=== PATIENT | male | born 1955 | race Caucasian/White ===

== ENCOUNTER 2023-05-03 19:49 | Observation (INO) ==
[2023-05-03] MEDS ORDERED: SODIUM CHLORIDE 0.9% 1,000 ML IV ONE ×2 (20:28→22:32)
[2023-05-03 20:40] LABS: Hematocrit (blood only) 41.8 % (42.0-52.0); Hemoglobin 15.3 g/dl (14.0-18.0); Mean Corpuscular Hemoglobin 32.6 pg (25.0-34.0); Mean Corpuscular Hgb Conc 36.6 g/dL (32.0-36.0); Mean Corpuscular Volume 89.1 fL (80.0-100.0); Mean Platelet Volume 10.6 fL (9.4-12.4); Platelet Count 168 K/uL (130-400); RDW Coefficient of Variation 12.3 % (11.5-14.5); RDW Standard Deviation 39.7 fL (36.4-46.3); Red Blood Count 4.69 M/uL (4.70-6.10); White Blood Count 14.85 K/ul (4.8-10.8)
[2023-05-03] MEDS ORDERED: PIPERACILLIN/TAZOBACTAM 4.5 GM/120 ML BAG IV ONE (20:53)
--- NOTE | 2023-05-03 20:55 | Emergency Department Note ---
Impression & Plan Pneumonia, Altered mental status, Fever, Hypoxia, Hypomagnesemia ED Provider Note NAME: SABRINA LEVI AGE: 67 SEX: M : 1955 ARRIVES VIA: Walk-In INFORMANT: Patient, the patient's family member ED PROVIDER(S): Adryan Mcguire DO CHIEF COMPLAINT: Altered mental status HPI: The patient is a 67-year-old male who presented to the emergency department for an evaluation of altered mental status. The patient presented with family. Apparently he has been having problems throughout the day with epigastric pain. He was noted to have a fever of 102 degrees. He was given ibuprofen prior to arrival. He is also noticed a cough as well as difficulty breathing. The patient was having episodes of altered mental status. He was very lethargic upon arrival. I was asked to see the patient by nursing staff once the patient got into his room. His family member did present with him. She does provide part of the history. ROS: See above HPI for pertinent positives & negatives. A total of 10 systems reviewed and were otherwise negative. PAST MEDICAL HISTORY: See Below PAST SURGICAL HISTORY: See Below FAMILY HISTORY: See Below SOCIAL HISTORY: See Below HOME MEDICATIONS: See Below ALLERGIES: See Below VITALS: See Below PHYSICAL EXAMINATION: GENERAL: The patient is awake and answers questions. He is slow to answer questions but appears appropriate. EYES: The conjunctivae are clear. The pupils are round and reactive. EARS, NOSE, MOUTH AND THROAT: The nose is without any evidence of any deformity. Mucous membranes are dry. e. NECK: The neck is nontender and supple. RESPIRATORY: Diminished breath sounds are noted throughout. There is no tachypnea or conversational dyspnea. CARDIOVASCULAR: Regular rate and rhythm noted there no murmurs rubs or gallops normal S1 normal S2. GASTROINTESTINAL: The abdomen is soft and mildly distended. There is upper abdominal tenderness to palpation but no specific guarding or rigidity. MUSCULOSKELETAL/EXTREMITIES: There is no evidence of gross deformity full range of motion is noted in the hips and shoulders. SKIN: Skin was warm and dry. There is no significant pedal edema. NEUROLOGIC: Patient is awake to verbal commands. He is oriented to person and place. He does recognize his family member. Strength was symmetric but diminished. MEDICAL DECISION MAKING: The patient is a 67-year-old male who presented to the emergency department for an evaluation of altered mental status. The patient was also noted to have a fever at home. Upon arrival he was noted to have hypoxia. Lung sounds were not necessarily abnormal. Given the patient's fever as well as his fluctuating blood pressure there was concern this may represent sepsis. I discussed patient's laboratory and radiographic studies with him and his significant other. He was treated with multiple fluid boluses as well as empiric antibiotics. CT of the chest was obtained which appears to be consistent with infiltrate in the right upper lung. Given the patient's findings as well as his ongoing low blood pressure I will discuss this case with the on-call [facility]. Triage Nursing notes reviewed. Prior medical records reviewed Vital Signs: reviewed and remarkable for fever, tachycardia, low blood pressure. Differential diagnosis: Infection, hypoglycemia, electrolyte abnormalities, overdose, toxicologic, cardiac sources, intracerebral event, neurologic, trauma, as well as other pathologies. ER treatment provided: See below Diagnostics interpreted by me: ECG: EKG was obtained in the emergency department. My interpretation is normal sinus rhythm at 84 bpm. There is no ectopy. There is no acute ST segment abnormalities noted. This was compared to a tracing from April 27, 2023. No changes were noted. Cardiac Monitoring: An order was placed for continuous cardiac monitoring. The monitor shows a rate of 93 bpm with sinus rhythm. Laboratory studies: As stated above and show below. Imaging studies: See below. Radiographic imaging was reviewed by myself Consultation(s): Dr. Simon who is on-call for the [facility] group was notified about the patient. ED COURSE: Procedures: none Critical Care: I have personally spent greater than 45 minutes of critical care time in the direct management of this patient. This includes bedside care, interpretation of diagnostic studies, and testing, discussion with consultants, patient, and family members, and other required patient management activities. This 45 minutes is in excess of all separately billable procedures. Past Med/Surg History Medical History Coronary artery disease Diabetes Surgical History History of cholecystectomy History of coronary artery bypass graft Social History Smoking Status: Never smoker Preferred Language: Khmer Feels Safe at Home: Yes Home Meds Home Medications Medication Instructions Recorded Confirmed atorvastatin 80 mg tablet 80 mg PO DAILY 05/03/23 05/03/23 dulaglutide 0.75 mg/0.5 mL 0.75 mg subcut WK 05/03/23 05/03/23 subcutaneous pen injector (Trulicity) empagliflozin 25 mg tablet 25 mg PO DAILY 05/03/23 05/03/23 (Jardiance) furosemide 20 mg tablet 20 mg PO DAILY PRN leg swelling 05/03/23 05/03/23 glipizide 10 mg tablet, extended 10 mg PO BID 05/03/23 05/03/23 release 24 hr metformin 1,000 mg tablet 1,000 mg PO BIDM 05/03/23 05/03/23 metoprolol succinate 25 mg 12.5 mg PO DAILY 05/03/23 05/03/23 tablet,extended release 24 hr nitroglycerin 0.4 mg sublingual 0.4 mg sublingual UD PRN Chest Pain 05/03/23 tablet Results & Data (ED) Vital Signs Vital Signs - 24 hr 05/03/23 19:52 05/03/23 20:00 05/03/23 20:00 Temperature 37.2 C Temperature Source Temporal Artery Scan Pulse Rate 98 H 96 H Pulse Rate [Right Finger] Pulse Rate from SpO2 Sensor Pulse Rhythm Regular Respiratory Rate 20 20 Respiratory Effort / Characteristics Short of Breath Respiratory Depth Normal Respiratory Pattern Blood Pressure 100/63 Blood Pressure [Right Arm] Blood Pressure Mean 75 Blood Pressure Mean [Right Arm] Blood Pressure Position Sitting Blood Pressure Position [Right Arm] Pulse Oximetry 90 89 L 96 Oxygen Delivery Method Room Air Room Air Nasal Cannula Oxygen Flow Rate 0 2 Sepsis Recent Fever Within 48 Hours Yes Sepsis New/Unexplained Change in Mental Status N/A Sepsis Action Taken by Nursing No Action Required Oxygen Flow Rate - Titration 2 Pulse Oximetry Post Tiitration 98 05/03/23 20:28 05/03/23 20:28 05/03/23 20:30 Temperature 37.7 C H Temperature Source Oral Pulse Rate 100 H 102 H Pulse Rate [Right Finger] 96 H Pulse Rate from SpO2 Sensor 100 H 104 H Pulse Rhythm Respiratory Rate 20 17 14 Respiratory Effort / Characteristics Non-Labored Spontaneous Respiratory Depth Normal Respiratory Pattern Regular Blood Pressure Blood Pressure [Right Arm] 107/65 Blood Pressure Mean Blood Pressure Mean [Right Arm] 79 Blood Pressure Position Blood Pressure Position [Right Arm] Lying Pulse Oximetry 96 92 91 Oxygen Delivery Method Nasal Cannula Oxygen Flow Rate 2 Sepsis Recent Fever Within 48 Hours Sepsis New/Unexplained Change in Mental Status Sepsis Action Taken by Nursing Oxygen Flow Rate - Titration Pulse Oximetry Post Tiitration 05/03/23 20:40 05/03/23 20:49 05/03/23 20:49 Temperature Temperature Source Pulse Rate 108 H 100 H Pulse Rate [Right Finger] Pulse Rate from SpO2 Sensor 108 H 100 H Pulse Rhythm Respiratory Rate 18 27 H Respiratory Effort / Characteristics Respiratory Depth Respiratory Pattern Blood Pressure 89/63 L Blood Pressure [Right Arm] Blood Pressure Mean 76 Blood Pressure Mean [Right Arm] Blood Pressure Position Blood Pressure Position [Right Arm] Pulse Oximetry 97 96 Oxygen Delivery Method Oxygen Flow Rate Sepsis Recent Fever Within 48 Hours Sepsis New/Unexplained Change in Mental Status Sepsis Action Taken by Nursing Oxygen Flow Rate - Titration Pulse Oximetry Post Tiitration 05/03/23 20:50 05/03/23 21:00 05/03/23 21:00 Temperature Temperature Source Pulse Rate 98 H 97 H Pulse Rate [Right Finger] Pulse Rate from SpO2 Sensor 99 H 96 H Pulse Rhythm Respiratory Rate 25 H 20 Respiratory Effort / Characteristics Respiratory Depth Respiratory Pattern Blood Pressure 110/60 Blood Pressure [Right Arm] Blood Pressure Mean 73 Blood Pressure Mean [Right Arm] Blood Pressure Position Blood Pressure Position [Right Arm] Pulse Oximetry 97 98 Oxygen Delivery Method Oxygen Flow Rate Sepsis Recent Fever Within 48 Hours Sepsis New/Unexplained Change in Mental Status Sepsis Action Taken by Nursing Oxygen Flow Rate - Titration Pulse Oximetry Post Tiitration 05/03/23 21:34 05/03/23 21:34 05/03/23 21:40 Temperature Temperature Source Pulse Rate 95 H Pulse Rate [Right Finger] Pulse Rate from SpO2 Sensor 97 H 95 H Pulse Rhythm Respiratory Rate 13 Respiratory Effort / Characteristics Respiratory Depth Respiratory Pattern Blood Pressure 104/65 Blood Pressure [Right Arm] Blood Pressure Mean 73 Blood Pressure Mean [Right Arm] Blood Pressure Position Blood Pressure Position [Right Arm] Pulse Oximetry 98 100 Oxygen Delivery Method Oxygen Flow Rate Sepsis Recent Fever Within 48 Hours Sepsis New/Unexplained Change in Mental Status Sepsis Action Taken by Nursing Oxygen Flow Rate - Titration Pulse Oximetry Post Tiitration 05/03/23 21:45 05/03/23 21:45 05/03/23 21:50 Temperature Temperature Source Pulse Rate 95 H 97 H Pulse Rate [Right Finger] Pulse Rate from SpO2 Sensor 94 H 97 H Pulse Rhythm Respiratory Rate 17 18 Respiratory Effort / Characteristics Respiratory Depth Respiratory Pattern Blood Pressure 96/60 L Blood Pressure [Right Arm] Blood Pressure Mean 68 Blood Pressure Mean [Right Arm] Blood Pressure Position Blood Pressure Position [Right Arm] Pulse Oximetry 96 98 Oxygen Delivery Method Oxygen Flow Rate Sepsis Recent Fever Within 48 Hours Sepsis New/Unexplained Change in Mental Status Sepsis Action Taken by Nursing Oxygen Flow Rate - Titration Pulse Oximetry Post Tiitration 05/03/23 22:00 05/03/23 22:00 05/03/23 20:27 Temperature Temperature Source Pulse Rate 98 H 101 H Pulse Rate [Right Finger] Pulse Rate from SpO2 Sensor 98 H Pulse Rhythm Respiratory Rate 25 H Respiratory Effort / Characteristics Respiratory Depth Respiratory Pattern Blood Pressure 105/59 L Blood Pressure [Right Arm] Blood Pressure Mean 71 Blood Pressure Mean [Right Arm] Blood Pressure Position Blood Pressure Position [Right Arm] Pulse Oximetry 99 Oxygen Delivery Method Oxygen Flow Rate Sepsis Recent Fever Within 48 Hours Sepsis New/Unexplained Change in Mental Status Sepsis Action Taken by Nursing Oxygen Flow Rate - Titration Pulse Oximetry Post Tiitration 05/03/23 22:10 05/03/23 22:15 05/03/23 22:15 Temperature Temperature Source Pulse Rate 92 H 93 H Pulse Rate [Right Finger] Pulse Rate from SpO2 Sensor 94 H 92 H Pulse Rhythm Respiratory Rate 21 20 Respiratory Effort / Characteristics Respiratory Depth Respiratory Pattern Blood Pressure 97/58 L Blood Pressure [Right Arm] Blood Pressure Mean 77 Blood Pressure Mean [Right Arm] Blood Pressure Position Blood Pressure Position [Right Arm] Pulse Oximetry 98 98 Oxygen Delivery Method Oxygen Flow Rate Sepsis Recent Fever Within 48 Hours Sepsis New/Unexplained Change in Mental Status Sepsis Action Taken by Nursing Oxygen Flow Rate - Titration Pulse Oximetry Post Tiitration 05/03/23 22:20 05/03/23 22:30 05/03/23 22:30 Temperature Temperature Source Pulse Rate 97 H 95 H Pulse Rate [Right Finger] Pulse Rate from SpO2 Sensor 97 H 96 H Pulse Rhythm Respiratory Rate 23 32 H Respiratory Effort / Characteristics Respiratory Depth Respiratory Pattern Blood Pressure 96/64 L Blood Pressure [Right Arm] Blood Pressure Mean 73 Blood Pressure Mean [Right Arm] Blood Pressure Position Blood Pressure Position [Right Arm] Pulse Oximetry 99 99 Oxygen Delivery Method Oxygen Flow Rate Sepsis Recent Fever Within 48 Hours Sepsis New/Unexplained Change in Mental Status Sepsis Action Taken by Nursing Oxygen Flow Rate - Titration Pulse Oximetry Post Tiitration 05/03/23 22:40 05/03/23 22:45 05/03/23 22:45 Temperature Temperature Source Pulse Rate 95 H 110 H Pulse Rate [Right Finger] Pulse Rate from SpO2 Sensor 95 H 113 H Pulse Rhythm Respiratory Rate 23 21 Respiratory Effort / Characteristics Respiratory Depth Respiratory Pattern Blood Pressure 124/77 Blood Pressure [Right Arm] Blood Pressure Mean 87 Blood Pressure Mean [Right Arm] Blood Pressure Position Blood Pressure Position [Right Arm] Pulse Oximetry 98 98 Oxygen Delivery Method Oxygen Flow Rate Sepsis Recent Fever Within 48 Hours Sepsis New/Unexplained Change in Mental Status Sepsis Action Taken by Nursing Oxygen Flow Rate - Titration Pulse Oximetry Post Tiitration 05/03/23 22:50 05/03/23 23:00 05/03/23 23:02 Temperature Temperature Source Pulse Rate 98 H 92 H Pulse Rate [Right Finger] Pulse Rate from SpO2 Sensor 98 H 91 H Pulse Rhythm Respiratory Rate 28 H 29 H Respiratory Effort / Characteristics Respiratory Depth Respiratory Pattern Blood Pressure 87/61 L Blood Pressure [Right Arm] Blood Pressure Mean 69 Blood Pressure Mean [Right Arm] Blood Pressure Position Blood Pressure Position [Right Arm] Pulse Oximetry 81 L 98 Oxygen Delivery Method Oxygen Flow Rate Sepsis Recent Fever Within 48 Hours Sepsis New/Unexplained Change in Mental Status Sepsis Action Taken by Nursing Oxygen Flow Rate - Titration Pulse Oximetry Post Tiitration 05/03/23 23:02 05/03/23 23:10 05/03/23 23:16 Temperature Temperature Source Pulse Rate 94 H 94 H Pulse Rate [Right Finger] Pulse Rate from SpO2 Sensor 94 H 93 H Pulse Rhythm Respiratory Rate 20 18 Respiratory Effort / Characteristics Respiratory Depth Respiratory Pattern Blood Pressure 86/62 L Blood Pressure [Right Arm] Blood Pressure Mean 71 Blood Pressure Mean [Right Arm] Blood Pressure Position Blood Pressure Position [Right Arm] Pulse Oximetry 98 99 Oxygen Delivery Method Oxygen Flow Rate Sepsis Recent Fever Within 48 Hours Sepsis New/Unexplained Change in Mental Status Sepsis Action Taken by Nursing Oxygen Flow Rate - Titration Pulse Oximetry Post Tiitration 05/03/23 23:16 05/03/23 23:20 Temperature Temperature Source Pulse Rate 93 H 93 H Pulse Rate [Right Finger] Pulse Rate from SpO2 Sensor 93 H 93 H Pulse Rhythm Respiratory Rate 17 18 Respiratory Effort / Characteristics Respiratory Depth Respiratory Pattern Blood Pressure Blood Pressure [Right Arm] Blood Pressure Mean Blood Pressure Mean [Right Arm] Blood Pressure Position Blood Pressure Position [Right Arm] Pulse Oximetry 99 98 Oxygen Delivery Method Oxygen Flow Rate Sepsis Recent Fever Within 48 Hours Sepsis New/Unexplained Change in Mental Status Sepsis Action Taken by Nursing Oxygen Flow Rate - Titration Pulse Oximetry Post Tiitration Home Medications Current Medication List: was personally reviewed by me Laboratory Data Attestation: I reviewed the patient's lab results. 05/03/23 20:10 05/03/23 20:10 Lab Results 05/03/23 05/03/23 05/03/23 Range/Units 20:10 20:10 20:10 WBC 14.85 H (4.8-10.8) K/ul RBC 4.69 L (4.70-6.10) M/uL Hgb 15.3 (14.0-18.0) g/dl Hct 41.8 L (42.0-52.0) % MCV 89.1 (80.0-100.0) fL MCH 32.6 (25.0-34.0) pg MCHC 36.6 H (32.0-36.0) g/dL RDW Std Deviation 39.7 (36.4-46.3) fL RDW Coeff of Claudia 12.3 (11.5-14.5) % Plt Count 168 (130-400) K/uL MPV 10.6 (9.4-12.4) fL Immature Gran % (Auto) 0.5 % Neut % (Auto) 90.8 % Lymph % (Auto) 2.9 % Cherry % (Auto) 5.4 % Eos % (Auto) 0.2 % Baso % (Auto) 0.2 % Neut # (Auto) 13.48 H (1.40-6.50) K/uL Lymph # (Auto) 0.43 L (1.20-3.40) K/uL Cherry # (Auto) 0.80 H (0.11-0.59) K/uL Eos # (Auto) 0.03 (0.00-0.50) K/uL Baso # (Auto) 0.03 (0.00-0.20) K/uL Immature Gran # (Auto) 0.08 (0.01-0.20) K/uL ESR (0-20) mm/hr PT 10.7 (9.0-12.0) Seconds INR 1.0 (0.9-1.1) APTT 23.0 (21.0-31.0) Seconds PTT Ratio 0.8 VBG pH (7.36-7.41) VBG pCO2 (38-50) mmHg VBG pO2 mmHg VBG HCO3 mmol/L VBG O2 Saturation % VBG Base Excess mEq/L Sodium 134 L (136-145) mmol/L Potassium 3.2 L (3.5-5.1) mmol/L Chloride 103 (98-107) mmol/L Carbon Dioxide 22 (21-32) mmol/L Anion Gap 9 (3-11) BUN 16 (6-23) mg/dl Creatinine 0.82 (0.6-1.4) mg/dl Est Cr Clr Drug Dosing 93.3 ml/min Est GFR ( Amer) 104.6 ml/min Est GFR (Non-Af Amer) 90.2 ml/min BUN/Creatinine Ratio 19.5 (10-20) Glucose 144 H (70-99(Fasting)) mg/dl POC Glucose (70-99) mg/dl Lactate (0.4-2.0) mmol/L Calcium 9.1 (8.6-10.3) mg/dl Magnesium 1.5 L (1.7-2.4) mg/dl Total Bilirubin 1.2 H (0.2-1.0) mg/dl Direct Bilirubin 0.2 (0-0.2) mg/dl AST 17 (13-39) U/L ALT 20 (7-52) U/L Alkaline Phosphatase 127 H (34-104) U/L Troponin I High Sens 7.2 (0-20) pg/ml C-Reactive Protein 1.16 H (0-0.5) mg/dl Total Protein 7.0 (6.0-8.3) gm/dl Albumin 3.9 (3.4-5.0) gm/dl Procalcitonin (0-0.5) ng/ml Urine Color Urine Appearance (Clear) Urine pH (4.5-7.5) Ur Specific [place] (1.000-1.030) Urine Protein (Negative) Urine Glucose (UA) (Negative) Urine Ketones (Negative) Urine Blood (Negative) Urine Nitrite (Negative) Urine Bilirubin (Negative) Urine Urobilinogen (Negative) Ur Leukocyte Esterase (Negative) Adenovirus (PCR) (NotDetected) B. pertussis DNA (PCR) (NotDetected) B.parapertussis DNA PCR (NotDetected) C. pneumoniae DNA (PCR) (NotDetected) Coronavirus OC43 (PCR) (NotDetected) Coronavirus HKU1 (PCR) (NotDetected) Coronavirus 229E (PCR) (NotDetected) SARS-CoV-2 (PCR) (NotDetected) Coronavirus NL63 (PCR) (NotDetected) Human Metapneumovir PCR (NotDetected) Influenza Type A (PCR) (NotDetected) Influenza Type B (PCR) (NotDetected) M. pneumoniae (PCR) (NotDetected) Parainfluenza 1 (PCR) (NotDetected) Parainfluenza 2 (PCR) (NotDetected) Parainfluenza 3 (PCR) (NotDetected) Parainfluenza 4 (PCR) (NotDetected) RSV (PCR) (NotDetected) Entero/Rhino (PCR) (NotDetected) 05/03/23 05/03/23 05/03/23 Range/Units 20:10 20:10 20:21 WBC (4.8-10.8) K/ul RBC (4.70-6.10) M/uL Hgb (14.0-18.0) g/dl Hct (42.0-52.0) % MCV (80.0-100.0) fL MCH (25.0-34.0) pg MCHC (32.0-36.0) g/dL RDW Std Deviation (36.4-46.3) fL RDW Coeff of Claudia (11.5-14.5) % Plt Count (130-400) K/uL MPV (9.4-12.4) fL Immature Gran % (Auto) % Neut % (Auto) % Lymph % (Auto) % Cherry % (Auto) % Eos % (Auto) % Baso % (Auto) % Neut # (Auto) (1.40-6.50) K/uL Lymph # (Auto) (1.20-3.40) K/uL Cherry # (Auto) (0.11-0.59) K/uL Eos # (Auto) (0.00-0.50) K/uL Baso # (Auto) (0.00-0.20) K/uL Immature Gran # (Auto) (0.01-0.20) K/uL ESR 19 (0-20) mm/hr PT (9.0-12.0) Seconds INR (0.9-1.1) APTT (21.0-31.0) Seconds PTT Ratio VBG pH (7.36-7.41) VBG pCO2 (38-50) mmHg VBG pO2 mmHg VBG HCO3 mmol/L VBG O2 Saturation % VBG Base Excess mEq/L Sodium (136-145) mmol/L Potassium (3.5-5.1) mmol/L Chloride (98-107) mmol/L Carbon Dioxide (21-32) mmol/L Anion Gap (3-11) BUN (6-23) mg/dl Creatinine (0.6-1.4) mg/dl Est Cr Clr Drug Dosing ml/min Est GFR ( Amer) ml/min Est GFR (Non-Af Amer) ml/min BUN/Creatinine Ratio (10-20) Glucose (70-99(Fasting)) mg/dl POC Glucose 136 H (70-99) mg/dl Lactate (0.4-2.0) mmol/L Calcium (8.6-10.3) mg/dl Magnesium (1.7-2.4) mg/dl Total Bilirubin (0.2-1.0) mg/dl Direct Bilirubin (0-0.2) mg/dl AST (13-39) U/L ALT (7-52) U/L Alkaline Phosphatase (34-104) U/L Troponin I High Sens (0-20) pg/ml C-Reactive Protein (0-0.5) mg/dl Total Protein (6.0-8.3) gm/dl Albumin (3.4-5.0) gm/dl Procalcitonin 0.11 (0-0.5) ng/ml Urine Color Urine Appearance (Clear) Urine pH (4.5-7.5) Ur Specific [place] (1.000-1.030) Urine Protein (Negative) Urine Glucose (UA) (Negative) Urine Ketones (Negative) Urine Blood (Negative) Urine Nitrite (Negative) Urine Bilirubin (Negative) Urine Urobilinogen (Negative) Ur Leukocyte Esterase (Negative) Adenovirus (PCR) (NotDetected) B. pertussis DNA (PCR) (NotDetected) B.parapertussis DNA PCR (NotDetected) C. pneumoniae DNA (PCR) (NotDetected) Coronavirus OC43 (PCR) (NotDetected) Coronavirus HKU1 (PCR) (NotDetected) Coronavirus 229E (PCR) (NotDetected) SARS-CoV-2 (PCR) (NotDetected) Coronavirus NL63 (PCR) (NotDetected) Human Metapneumovir PCR (NotDetected) Influenza Type A (PCR) (NotDetected) Influenza Type B (PCR) (NotDetected) M. pneumoniae (PCR) (NotDetected) Parainfluenza 1 (PCR) (NotDetected) Parainfluenza 2 (PCR) (NotDetected) Parainfluenza 3 (PCR) (NotDetected) Parainfluenza 4 (PCR) (NotDetected) RSV (PCR) (NotDetected) Entero/Rhino (PCR) (NotDetected) 05/03/23 05/03/23 05/03/23 Range/Units 20:30 20:46 21:02 WBC (4.8-10.8) K/ul RBC (4.70-6.10) M/uL Hgb (14.0-18.0) g/dl Hct (42.0-52.0) % MCV (80.0-100.0) fL MCH (25.0-34.0) pg MCHC (32.0-36.0) g/dL RDW Std Deviation (36.4-46.3) fL RDW Coeff of Claudia (11.5-14.5) % Plt Count (130-400) K/uL MPV (9.4-12.4) fL Immature Gran % (Auto) % Neut % (Auto) % Lymph % (Auto) % Cherry % (Auto) % Eos % (Auto) % Baso % (Auto) % Neut # (Auto) (1.40-6.50) K/uL Lymph # (Auto) (1.20-3.40) K/uL Cherry # (Auto) (0.11-0.59) K/uL Eos # (Auto) (0.00-0.50) K/uL Baso # (Auto) (0.00-0.20) K/uL Immature Gran # (Auto) (0.01-0.20) K/uL ESR (0-20) mm/hr PT (9.0-12.0) Seconds INR (0.9-1.1) APTT (21.0-31.0) Seconds PTT Ratio VBG pH 7.41 (7.36-7.41) VBG pCO2 37 L (38-50) mmHg VBG pO2 64 mmHg VBG HCO3 24 mmol/L VBG O2 Saturation 92.4 % VBG Base Excess -0.8 mEq/L Sodium (136-145) mmol/L Potassium (3.5-5.1) mmol/L Chloride (98-107) mmol/L Carbon Dioxide (21-32) mmol/L Anion Gap (3-11) BUN (6-23) mg/dl Creatinine (0.6-1.4) mg/dl Est Cr Clr Drug Dosing ml/min Est GFR ( Amer) ml/min Est GFR (Non-Af Amer) ml/min BUN/Creatinine Ratio (10-20) Glucose (70-99(Fasting)) mg/dl POC Glucose (70-99) mg/dl Lactate 1.5 (0.4-2.0) mmol/L Calcium (8.6-10.3) mg/dl Magnesium (1.7-2.4) mg/dl Total Bilirubin (0.2-1.0) mg/dl Direct Bilirubin (0-0.2) mg/dl AST (13-39) U/L ALT (7-52) U/L Alkaline Phosphatase (34-104) U/L Troponin I High Sens (0-20) pg/ml C-Reactive Protein (0-0.5) mg/dl Total Protein (6.0-8.3) gm/dl Albumin (3.4-5.0) gm/dl Procalcitonin (0-0.5) ng/ml Urine Color Urine Appearance (Clear) Urine pH (4.5-7.5) Ur Specific [place] (1.000-1.030) Urine Protein (Negative) Urine Glucose (UA) (Negative) Urine Ketones (Negative) Urine Blood (Negative) Urine Nitrite (Negative) Urine Bilirubin (Negative) Urine Urobilinogen (Negative) Ur Leukocyte Esterase (Negative) Adenovirus (PCR) Not Detected (NotDetected) B. pertussis DNA (PCR) Not Detected (NotDetected) B.parapertussis DNA PCR Not Detected (NotDetected) C. pneumoniae DNA (PCR) Not Detected (NotDetected) Coronavirus OC43 (PCR) Not Detected (NotDetected) Coronavirus HKU1 (PCR) Not Detected (NotDetected) Coronavirus 229E (PCR) Not Detected (NotDetected) SARS-CoV-2 (PCR) Not Detected (NotDetected) Coronavirus NL63 (PCR) Not Detected (NotDetected) Human Metapneumovir PCR Not Detected (NotDetected) Influenza Type A (PCR) Not Detected (NotDetected) Influenza Type B (PCR) Not Detected (NotDetected) M. pneumoniae (PCR) Not Detected (NotDetected) Parainfluenza 1 (PCR) Not Detected (NotDetected) Parainfluenza 2 (PCR) Not Detected (NotDetected) Parainfluenza 3 (PCR) Not Detected (NotDetected) Parainfluenza 4 (PCR) Not Detected (NotDetected) RSV (PCR) Not Detected (NotDetected) Entero/Rhino (PCR) Not Detected (NotDetected) 05/03/23 Range/Units 22:02 WBC (4.8-10.8) K/ul RBC (4.70-6.10) M/uL Hgb (14.0-18.0) g/dl Hct (42.0-52.0) % MCV (80.0-100.0) fL MCH (25.0-34.0) pg MCHC (32.0-36.0) g/dL RDW Std Deviation (36.4-46.3) fL RDW Coeff of Claudia (11.5-14.5) % Plt Count (130-400) K/uL MPV (9.4-12.4) fL Immature Gran % (Auto) % Neut % (Auto) % Lymph % (Auto) % Cherry % (Auto) % Eos % (Auto) % Baso % (Auto) % Neut # (Auto) (1.40-6.50) K/uL Lymph # (Auto) (1.20-3.40) K/uL Cherry # (Auto) (0.11-0.59) K/uL Eos # (Auto) (0.00-0.50) K/uL Baso # (Auto) (0.00-0.20) K/uL Immature Gran # (Auto) (0.01-0.20) K/uL ESR (0-20) mm/hr PT (9.0-12.0) Seconds INR (0.9-1.1) APTT (21.0-31.0) Seconds PTT Ratio VBG pH (7.36-7.41) VBG pCO2 (38-50) mmHg VBG pO2 mmHg VBG HCO3 mmol/L VBG O2 Saturation % VBG Base Excess mEq/L Sodium (136-145) mmol/L Potassium (3.5-5.1) mmol/L Chloride (98-107) mmol/L Carbon Dioxide (21-32) mmol/L Anion Gap (3-11) BUN (6-23) mg/dl Creatinine (0.6-1.4) mg/dl Est Cr Clr Drug Dosing ml/min Est GFR ( Amer) ml/min Est GFR (Non-Af Amer) ml/min BUN/Creatinine Ratio (10-20) Glucose (70-99(Fasting)) mg/dl POC Glucose (70-99) mg/dl Lactate (0.4-2.0) mmol/L Calcium (8.6-10.3) mg/dl Magnesium (1.7-2.4) mg/dl Total Bilirubin (0.2-1.0) mg/dl Direct Bilirubin (0-0.2) mg/dl AST (13-39) U/L ALT (7-52) U/L Alkaline Phosphatase (34-104) U/L Troponin I High Sens (0-20) pg/ml C-Reactive Protein (0-0.5) mg/dl Total Protein (6.0-8.3) gm/dl Albumin (3.4-5.0) gm/dl Procalcitonin (0-0.5) ng/ml Urine Color Yellow Urine Appearance Clear (Clear) Urine pH 5.5 (4.5-7.5) Ur Specific [place] > 1.045 H (1.000-1.030) Urine Protein Negative (Negative) Urine Glucose (UA) 3+ H (Negative) Urine Ketones Trace H (Negative) Urine Blood Negative (Negative) Urine Nitrite Negative (Negative) Urine Bilirubin Negative (Negative) Urine Urobilinogen Negative (Negative) Ur Leukocyte Esterase Negative (Negative) Adenovirus (PCR) (NotDetected) B. pertussis DNA (PCR) (NotDetected) B.parapertussis DNA PCR (NotDetected) C. pneumoniae DNA (PCR) (NotDetected) Coronavirus OC43 (PCR) (NotDetected) Coronavirus HKU1 (PCR) (NotDetected) Coronavirus 229E (PCR) (NotDetected) SARS-CoV-2 (PCR) (NotDetected) Coronavirus NL63 (PCR) (NotDetected) Human Metapneumovir PCR (NotDetected) Influenza Type A (PCR) (NotDetected) Influenza Type B (PCR) (NotDetected) M. pneumoniae (PCR) (NotDetected) Parainfluenza 1 (PCR) (NotDetected) Parainfluenza 2 (PCR) (NotDetected) Parainfluenza 3 (PCR) (NotDetected) Parainfluenza 4 (PCR) (NotDetected) RSV (PCR) (NotDetected) Entero/Rhino (PCR) (NotDetected) Administered Medications Discontinued Medications Acetaminophen (Acetaminophen 500 Mg Tab) 1,000 mg PO NOW STA Stop: 05/03/23 22:33 Last Admin: 05/03/23 22:40 Dose: 1,000 mg Documented By: [employer] Sodium Chloride (Nss 1000ml) 1,000 mls @ 999 mls/hr IV .Q1H1M ONE Stop: 05/03/23 21:28 Last Infusion: 05/03/23 21:40 Dose: 0 mls/hr Documented By: [employer]PECTOR Admin: 05/03/23 20:51 Dose: 999 mls/hr Documented By: [employer] Piperacillin Sod/Tazobactam Sod (Zosyn) 4.5 gm in 120 mls @ 240 mls/hr IV NOW ONE Stop: 05/03/23 21:22 Last Infusion: 05/03/23 21:36 Dose: 0 mls/hr Documented By: [employer]PECTOR Admin: 05/03/23 20:56 Dose: 240 mls/hr Documented By: [employer]OR Magnesium Sulfate/Dextrose (Magnesium Sulfate / D5w) 1 gm in 100 mls @ 100 mls/hr IV NOW STA Stop: 05/03/23 22:41 Last Infusion: 05/03/23 23:26 Dose: 0 mls/hr Documented By: Admin: 05/03/23 22:16 Dose: 100 mls/hr Documented By: [employer]OR Sodium Chloride (Nss 1000ml) 1,000 mls @ 999 mls/hr IV .Q1H1M ONE Stop: 05/03/23 23:32 Last Admin: 05/03/23 22:43 Dose: 999 mls/hr Documented By: [employer]PECTOR Sodium Chloride (Nss 1000ml) 500 mls @ 999 mls/hr IV .Q31M ONE Stop: 05/03/23 23:02 Last Admin: 05/03/23 22:43 Dose: 999 mls/hr Documented By: [employer]OR Ioversol (Ioversol 350 Mg 125ml Prefilled Syringe) 118 ml IV ONCE ONE Stop: 05/03/23 21:20 Last Admin: 05/03/23 21:19 Dose: 118 ml Documented By: [facility] [employer] My Impression: 1 view chest x-ray was obtained in the emergency department. My interpretation is no free air, final report pending. CT of the abdomen and pelvis was obtained in the emergency department. My in terpretation is no free air or signs of bowel obstruction, final report below. CT of the chest was obtained in the emergency department. My interpretation is no free air, there was an infiltrate in the right lung field, final report below. Radiologist's Impression: Abdomen/Pelvis CT 05/03/23 20:52 Exam(s): CT ABDOMEN + PELVIS With Contrast IV Amt: 118ML OPTIRAY 350 EXAM: CT Abdomen and Pelvis With Intravenous Contrast CLINICAL HISTORY: Reason for exam: upper pain and fever. TECHNIQUE: Axial computed tomography images of the abdomen and pelvis with intravenous contrast. CTDI is 37.22 mGy and DLP is 2988.25 mGy-cm. Automated exposure control was utilized for the study. A dose lowering technique was utilized adhering to the principles of ALARA. CONTRAST: Patient received 118ML OPTIRAY 350 of IV contrast COMPARISON: No relevant prior studies available. FINDINGS: Lung bases: Unremarkable. No mass. No consolidation. ABDOMEN: Liver: Unremarkable. No focal hepatic lesion. Gallbladder and bile ducts: Cholecystectomy. No ductal dilation. Pancreas: Unremarkable. No mass. No ductal dilation. Spleen: Unremarkable. No splenomegaly. Adrenals: Unremarkable. No mass. Kidneys and ureters: Unremarkable. No hydronephrosis or delayed nephrogram. Stomach and bowel: Mild fecal retention, correlate for constipation. No small bowel obstruction. No mucosal thickening. PELVIS: Appendix: No findings to suggest acute appendicitis. Bladder: Unremarkable. No mass. Reproductive: Unremarkable as visualized. ABDOMEN and PELVIS: Intraperitoneal space: Unremarkable. No free air. No significant fluid collection. Bones/joints: Degenerative changes of the spine. No acute fracture. No dislocation. Soft tissues: Unremarkable. Vasculature: Atherosclerotic changes of the aorta. No abdominal aortic aneurysm. Lymph nodes: Unremarkable. No enlarged lymph nodes. IMPRESSION: 1. No hydronephrosis or delayed nephrogram. 2. Cholecystectomy. 3. Mild fecal retention, correlate for constipation. No small bowel obstruction. Electronically signed by: Jamie Gonzalez MD 05/03/23 23:12 PM Chest CTA 05/03/23 20:52 Exam(s): CTA CHEST EXAM: CT Angiography Chest With Intravenous Contrast CLINICAL HISTORY: Reason for exam: PE. TECHNIQUE: Axial computed tomographic angiography images of the chest with intravenous contrast. CTDI is 37.22 mGy and DLP is 2988.25 mGy-cm. Automated exposure control was utilized for the study. A dose lowering technique was utilized adhering to the principles of ALARA. MIP reconstructed images were created and reviewed. COMPARISON: No relevant prior studies available. FINDINGS: Pulmonary arteries: Unremarkable. No pulmonary embolism. Aorta: Atherosclerotic changes of the aorta. No thoracic aortic aneurysm. Lungs: Airspace consolidation versus mass in the RIGHT upper lobe measures 4.2 x 2.7 cm. Correlate for pneumonia. Follow-up chest CT recommended to document resolution following treatment. Pleural space: Unremarkable. No significant effusion. No pneumothorax. Heart: Unremarkable. No cardiomegaly. No significant pericardial effusion. No evidence of RV dysfunction. Bones/joints: Sternotomy wires. Degenerative changes of the spine. No acute fracture. No dislocation. Soft tissues: Unremarkable. Lymph nodes: Unremarkable. No enlarged lymph nodes. Gallbladder and bile ducts: Cholecystectomy. IMPRESSION: Airspace consolidation versus mass in the RIGHT upper lobe measures 4.2 x 2.7 cm. Correlate for pneumonia. Follow-up chest CT recommended to document resolution following treatment. Electronically signed by: Jamie Gonzalez MD 05/03/23 23:[address] 05/03/23 20:52 Exam(s): CT HEAD Without Contrast EXAM: CT Head Without Intravenous Contrast CLINICAL HISTORY: Reason for exam: AMS. TECHNIQUE: Axial computed tomography images of the head/brain without intravenous contrast. CTDI is 37.22 mGy and DLP is 2988.25 mGy-cm. Automated exposure control was utilized for the study. A dose lowering technique was utilized adhering to the principles of ALARA. COMPARISON: No relevant prior studies available. FINDINGS: No acute intracranial hemorrhage. No midline shift or mass effect. The territorial kenyon-white matter differentiation is maintained throughout. Age-related cerebral volume loss. Periventricular and subcortical white matter hypoattenuation, consistent with chronic microangiopathy. The visualized orbits appear grossly unremarkable. The calvarium is intact. The visualized paranasal sinuses and mastoid air cells are grossly clear. IMPRESSION: No acute intracranial hemorrhage, midline shift, or mass effect. Electronically signed by: Jamie Gonzalez MD 05/03/23 22:50 PM Discharge Plan Visit Data Chief Complaint: Altered Mental Status Stated Complaint: FEVER, ALTERED MENTAL STATUS, VOMITING ED Provider: Adryan Mcguire Discharge Problem: Pneumonia, Altered mental status, Fever, Hypoxia, Hypomagnesemia Patient Disposition: Being Evaluated by Hospitalist Forms Stand Alone Forms: My [facility] Prescriptions Prescriptions: No Action atorvastatin 80 mg tablet 80 mg PO DAILY Jardiance 25 mg tablet 25 mg PO DAILY glipizide 10 mg tablet extended release 24hr 10 mg PO BID metformin 1,000 mg tablet 1,000 mg PO BIDM metoprolol succinate 25 mg tablet extended release 24 hr 12.5 mg PO DAILY Trulicity 0.75 mg/0.5 mL pen injector 0.75 mg SUBCUT WK furosemide 20 mg tablet 20 mg PO DAILY PRN (Reason: leg swelling) nitroglycerin 0.4 mg tablet, sublingual 0.4 mg sublingual UD PRN (Reason: Chest Pain) Rx Instructions: place 1 tablet under tongue every 5 minutes as needed for chest pain. may repeat every 5 minutes for 3 times Referrals Referrals: PCP,NO [Physician] - Pneumonia Qualifiers: Pneumonia type: due to unspecified organism Laterality: right Lung location: upper lobe of lung Qualified Code(s): J18.9 - Pneumonia, unspecified organism Altered mental status Qualifiers: Altered mental status type: unspecified Qualified Code(s): R41.82 - Altered m ental status, unspecified Fever Qualifiers: Fever type: unspecified Qualified Code(s): R50.9 - Fever, unspecified
[2023-05-03 20:57] LABS: Base Excess VBG -0.8 mEq/L; HCO3 VBG 24 mmol/L; Oxygen Saturation VBG 92.4 %; PCO2 VBG 37 mmHg (38-50); PO2 VBG 64 mmHg; pH VBG 7.41 (7.36-7.41)
[2023-05-03 20:59] LABS: Albumin Level 3.9 gm/dl (3.4-5.0); BUN Creatinine Ratio 19.5 (10-20); Bilirubin Direct 0.2 mg/dl (0-0.2); Bilirubin,Total 1.2 mg/dl (0.2-1.0); C Reactive Protein 1.16 mg/dl (0-0.5); Calcium 9.1 mg/dl (8.6-10.3); Creatinine Clr Calc Pharmacy 93.3 ml/min; Est GFR (African American) 104.6 ml/min; Est GFR (Non-African American) 90.2 ml/min; Magnesium 1.5 mg/dl (1.7-2.4); Potassium 3.2 mmol/L (3.5-5.1)
[2023-05-03 21:04] LABS: Basophils # (auto) 0.03 K/uL (0.00-0.20); Basophils % (auto) 0.2 %; Eosinophils # (auto) 0.03 K/uL (0.00-0.50); Eosinophils % (auto) 0.2 %; Immature Granulocytes # (auto) 0.08 K/uL (0.01-0.20); Immature Granulocytes % (auto) 0.5 %; Lymphocytes # (auto) 0.43 K/uL (1.20-3.40); Lymphocytes % (auto) 2.9 %; Monocytes % (auto) 5.4 %; Neutrophils # (auto) 13.48 K/uL (1.40-6.50); Neutrophils % (auto) 90.8 %
[2023-05-03 21:05] LABS: Troponin I High Sensitivity 7.2 pg/ml (0-20)
[2023-05-03] MEDS ORDERED: IOVERSOL 350 MG 125mL Prefilled Syringe IV ONE (21:19)
[2023-05-03 21:42] LABS: Partial Thromboplastin Ratio 0.8; Prothrombin Time 10.7 Seconds (9.0-12.0)
[2023-05-03] MEDS ORDERED: MAGNESIUM SULFATE / D5W 1 GM/100 ML BAG IV STA (21:42)
[2023-05-03 22:20] LABS: Adenovirus PCR Not Detected (NotDetected); Bordetella parapertussis PCR Not Detected (NotDetected); Bordetella pertussis PCR Not Detected (NotDetected); Chlamydia pneumoniae PCR Not Detected (NotDetected); Coronavirus 229E PCR Not Detected (NotDetected); Coronavirus CoV-2 (COVID19)PCR Not Detected (NotDetected); Coronavirus HKU1 PCR Not Detected (NotDetected); Coronavirus NL63 PCR Not Detected (NotDetected); Coronavirus OC43PCR Not Detected (NotDetected); Human Metapneumovirus PCR Not Detected (NotDetected); Influenza A PCR Not Detected (NotDetected); Influenza B PCR Not Detected (NotDetected); Mycoplasma pneumoniae PCR Not Detected (NotDetected); Parainfluenza Virus 1 PCR Not Detected (NotDetected); Parainfluenza Virus 2 PCR Not Detected (NotDetected); Parainfluenza Virus 3 PCR Not Detected (NotDetected); Parainfluenza Virus 4 PCR Not Detected (NotDetected); Respiratory Syncytial VirusPCR Not Detected (NotDetected); Rhinovirus/Enterovirus PCR Not Detected (NotDetected)
[2023-05-03] MEDS ORDERED: ACETAMINOPHEN 500 MG TAB PO STA (22:32)
[2023-05-03] MEDS ORDERED: SODIUM CHLORIDE 0.9% 500 ML IV ONE (22:32)
[2023-05-03 22:44] LABS: Appearance Urine Clear (Clear); Bilirubin Urine Negative (Negative); Blood Urine Negative (Negative); Color Urine Yellow; Glucose Urine UA 3+ (Negative); Ketones Urine Trace (Negative); Leukocyte Esterase Urine Negative (Negative); Nitrite Urine Negative (Negative); Protein Urine Negative (Negative); Specific Gravity Urine > 1.045 (1.000-1.030); Urobilinogen Urine Negative (Negative); pH Urine 5.5 (4.5-7.5)
--- NOTE | 2023-05-03 22:51 | CT Scan Report ---
Exam(s): CT HEAD Without Contrast EXAM: CT Head Without Intravenous Contrast CLINICAL HISTORY: Reason for exam: AMS. TECHNIQUE: Axial computed tomography images of the head/brain without intravenous contrast. CTDI is 37.22 mGy and DLP is 2988.25 mGy-cm. Automated exposure control was utilized for the study. A dose lowering technique was utilized adhering to the principles of ALARA. COMPARISON: No relevant prior studies available. FINDINGS: No acute intracranial hemorrhage. No midline shift or mass effect. The territorial kenyon-white matter differentiation is maintained throughout. Age-related cerebral volume loss. Periventricular and subcortical white matter hypoattenuation, consistent with chronic microangiopathy. The visualized orbits appear grossly unremarkable. The calvarium is intact. The visualized paranasal sinuses and mastoid air cells are grossly clear. IMPRESSION: No acute intracranial hemorrhage, midline shift, or mass effect. Electronically signed by: Jamie Gonzalez MD 05/03/23 22:50 PM
--- NOTE | 2023-05-03 23:03 | CT Scan Report ---
Exam(s): CTA CHEST EXAM: CT Angiography Chest With Intravenous Contrast CLINICAL HISTORY: Reason for exam: PE. TECHNIQUE: Axial computed tomographic angiography images of the chest with intravenous contrast. CTDI is 37.22 mGy and DLP is 2988.25 mGy-cm. Automated exposure control was utilized for the study. A dose lowering technique was utilized adhering to the principles of ALARA. MIP reconstructed images were created and reviewed. COMPARISON: No relevant prior studies available. FINDINGS: Pulmonary arteries: Unremarkable. No pulmonary embolism. Aorta: Atherosclerotic changes of the aorta. No thoracic aortic aneurysm. Lungs: Airspace consolidation versus mass in the RIGHT upper lobe measures 4.2 x 2.7 cm. Correlate for pneumonia. Follow-up chest CT recommended to document resolution following treatment. Pleural space: Unremarkable. No significant effusion. No pneumothorax. Heart: Unremarkable. No cardiomegaly. No significant pericardial effusion. No evidence of RV dysfunction. Bones/joints: Sternotomy wires. Degenerative changes of the spine. No acute fracture. No dislocation. Soft tissues: Unremarkable. Lymph nodes: Unremarkable. No enlarged lymph nodes. Gallbladder and bile ducts: Cholecystectomy. IMPRESSION: Airspace consolidation versus mass in the RIGHT upper lobe measures 4.2 x 2.7 cm. Correlate for pneumonia. Follow-up chest CT recommended to document resolution following treatment. Electronically signed by: Jamie Gonzalez MD 05/03/23 23:02 PM
--- NOTE | 2023-05-03 23:13 | CT Scan Report ---
Exam(s): CT ABDOMEN + PELVIS With Contrast IV Amt: 118ML OPTIRAY 350 EXAM: CT Abdomen and Pelvis With Intravenous Contrast CLINICAL HISTORY: Reason for exam: upper pain and fever. TECHNIQUE: Axial computed tomography images of the abdomen and pelvis with intravenous contrast. CTDI is 37.22 mGy and DLP is 2988.25 mGy-cm. Automated exposure control was utilized for the study. A dose lowering technique was utilized adhering to the principles of ALARA. CONTRAST: Patient received 118ML OPTIRAY 350 of IV contrast COMPARISON: No relevant prior studies available. FINDINGS: Lung bases: Unremarkable. No mass. No consolidation. ABDOMEN: Liver: Unremarkable. No focal hepatic lesion. Gallbladder and bile ducts: Cholecystectomy. No ductal dilation. Pancreas: Unremarkable. No mass. No ductal dilation. Spleen: Unremarkable. No splenomegaly. Adrenals: Unremarkable. No mass. Kidneys and ureters: Unremarkable. No hydronephrosis or delayed nephrogram. Stomach and bowel: Mild fecal retention, correlate for constipation. No small bowel obstruction. No mucosal thickening. PELVIS: Appendix: No findings to suggest acute appendicitis. Bladder: Unremarkable. No mass. Reproductive: Unremarkable as visualized. ABDOMEN and PELVIS: Intraperitoneal space: Unremarkable. No free air. No significant fluid collection. Bones/joints: Degenerative changes of the spine. No acute fracture. No dislocation. Soft tissues: Unremarkable. Vasculature: Atherosclerotic changes of the aorta. No abdominal aortic aneurysm. Lymph nodes: Unremarkable. No enlarged lymph nodes. IMPRESSION: 1. No hydronephrosis or delayed nephrogram. 2. Cholecystectomy. 3. Mild fecal retention, correlate for constipation. No small bowel obstruction. Electronically signed by: Jamie Gonzalez MD 05/03/23 23:12 PM
[2023-05-04] MEDS ORDERED: LACTATED RINGER'S 1,000 ML IV STA ×2 (00:29→02:42)
[2023-05-04] MEDS ORDERED: Patient's ALLERGY Info needs ENTERED STA (00:30)
[2023-05-04] MEDS ORDERED: DOXYCYCLINE HYCLATE 100 MG in DEXTROSE 5% 100 ML IV STA (00:36)
[2023-05-04] MEDS ORDERED: POTASSIUM CHLORIDE CRTAB 20 MEQ TABCR PO STA (00:37)
[2023-05-04 01:05] LABS: Lyme Ab IgG w/WB Rflx Negative (Negative); Lyme Ab IgM w/WB Rflx Negative (Negative)
[2023-05-04 02:13] LABS: BUN Creatinine Ratio 16.3 (10-20); Calcium 8.1 mg/dl (8.6-10.3); Est GFR (African American) 102.5 ml/min; Est GFR (Non-African American) 88.5 ml/min; Potassium 3.6 mmol/L (3.5-5.1)
--- NOTE | 2023-05-04 02:47 | History & Physical Report ---
Date of Service May 04, 2023 Assessment & Plan (1) Sepsis: Plan: 67yo male with history of CAD and DM presenting with sepsis. Patient with acute onset of fever, possibly some SOB. In the ER he is SIRS 3/4 (fever, tachycardia, elevated WBC to 14.8) as well as hypotension. He has been given 3.5L of crystalloid thus far. Blood pressures remain borderline low, although last several measurements with systolic BP > 90. Random cortisol level=9.8, low given amount of systemic stress at this point. Likely source is pulmonary given finding of airspace consolidation vs mass in the RUL. Also possible tick-borne illness - patient with history of tick bites in the past - is mildly hyponatremic, elevated Tbili. Respiratory biofire panel is NEGATIVE. Lactate and procalcitonin are NEGATIVE. -Admit to PCU -Check Lyme, Anaplasmosis and Babesiosis -Check Lipase -Check TSH -Continue LR at 125mL/hr x 1 L -Hydrocortisone 100mg IV now x 1 then 50mg IV q 6 hours -Follow culture results -Check MRSA Nares -Continue Zosyn 4.5gm IV q 8 (2) Coronary artery disease: Plan: Patient denies chest pain. Troponin is WNL. No acute ischemic changes present on EKG -Continue Atorvastatin -Hold Metoprolol -Will request records from [facility] - uncertain why patient is not on ASA? (3) Pneumonia: Plan: RUL PNA vs Mass noted on CT image. Patient hypoxic requiring supplemental O2 -Check MRSA Nares -Continue Zosyn -Consider Pulmonary consultation for possible mass (4) Diabetes: Plan: Blood fzlnz=400. Patient is on Jardiance as well as Glipizide and Metformin outpatient -Hold Glipizide, Metformin and Jardiance for now -ISS -Goal blood glucose 110-140 History of Present Illness Chief Complaint: sepsis Primary Care Provider: Juan Pablo Bragg PA-C S[place] Orr is a 67yo male with history of CAD s/p CABG and diabetes presenting with sepsis - fever/leukocytosis and hypotension. Patient has been in his usual state of health of late - was busy yesterday driving his daughter to [place], did some yard work and made some hay today in their field. Around 18:30 this evening he was with his granddaughter when he became febrile to 102.5 and confused. She reports that he was "talking crazy". Granddaughter gave him some Ibuprofen. He became quite weak and was unable to walk to the car. He crawled to the vehicle and came to the ER. In the ER patient with elevated HR >90, low blood pressure 80's/60's. He was hypoxic at 89% on room air and was placed on supplemental oxygen with improvement. endorses some vomiting prior to arrival - non-bloody/non-bilious Also with some shortness of breath Otherwise no report of headache, visual changes, chest pain, cough, abdominal pain, diarrhea or urinary complaints. Patient is eating and drinking well without difficulty. ER Course: NSS x 2.5L LR x 1L LR at 125mL/hr now started Zosyn 4.5gm IV Doxycycline 100mg IV Mg 1gm KCl 40mEq PO Tylenol 1gm Allergies Allergy/AdvReac Type Severity Reaction Status Date / Time No Known Allergies Allergy Unverified 05/04/23 00:36 Home Medications Medication Instructions Recorded Confirmed Type atorvastatin 80 mg tablet 80 mg PO DAILY 05/03/23 05/03/23 History dulaglutide 0.75 mg/0.5 mL 0.75 mg subcut WK 05/03/23 05/03/23 History subcutaneous pen injector (Trulicity) empagliflozin 25 mg tablet 25 mg PO DAILY 05/03/23 05/03/23 History (Jardiance) furosemide 20 mg tablet 20 mg PO DAILY PRN leg swelling 05/03/23 05/03/23 History glipizide 10 mg tablet, extended 10 mg PO BID 05/03/23 05/03/23 History release 24 hr metformin 1,000 mg tablet 1,000 mg PO BIDM 05/03/23 05/03/23 History metoprolol succinate 25 mg 12.5 mg PO DAILY 05/03/23 05/03/23 History tablet,extended release 24 hr nitroglycerin 0.4 mg sublingual 0.4 mg sublingual UD PRN Chest Pain 05/03/23 05/03/23 History tablet Past Med/Surg History Medical History (Updated 05/04/23 @ 02:57 by Agnieszka Simon DO) Coronary artery disease Diabetes Surgical History History of cholecystectomy History of coronary artery bypass graft Family History (Updated 05/04/23 @ 02:55 by Agnieszka Simon DO) Other Family history non-contributory Social History (Updated 05/04/23 @ 02:55 by Agnieszka Simon DO) Smoking Status: Never smoker Hx Alcohol Use: No Hx Substance Use: No Preferred Language: British Feels Safe at Home: Yes Review of Systems Review of Systems: All systems reviewed & are unremarkable except as noted in HPI & below Physical Exam Physical Exam: General: patient somnolent, arousable, appears ill, AA&O x 4 Skin: warm, dry, intact, no rashes or lesions HEENT: NC/AT, PERRL, EOMI, anicteric sclera, conjunctiva without injection, external ear normal to inspection and nontender, nares patent, moist mucus membranes, dentition intact, no oropharyngeal lesions, neck supple, trachea midline, no LAD, no thyromegaly, no JVD Heart: +S1/S2, regular, no m/r/g, physiologic splitting appreciated Lungs: equal air entry bilaterally, no rales/rhonchi/wheezes Abd: +BS, soft, NT/ND, no masses/organomegaly/ascites Ext: warm, 2+ pulses in UE/LE bilaterally, no clubbing/cyanosis or edema Neuro: nonfocal, patient AA&O x 4, speech intact, no facial droop, moving all extremities on command with equal strength 5/5 Results & Data Results & Data Vital Signs (Past 12 Hours) Vital Signs Temp Pulse Pulse Resp BP BP Pulse Ox 05/04/23 01:15 87 21 89/65 L 98 05/04/23 01:00 85 15 97/68 L 97 05/04/23 00:45 93 H 21 106/63 96 05/04/23 00:30 89 19 96/58 L 95 05/04/23 00:21 87 15 85/57 L 95 05/04/23 00:15 93 H 16 90/56 L 05/04/23 00:00 92 H 17 87/60 L 98 05/03/23 23:45 93 H 19 98/60 L 99 05/03/23 23:43 96 H 18 106/66 97 05/03/23 23:30 94 H 17 94/66 L 98 05/04/23 00:32 87 05/03/23 23:20 93 H 18 98 05/03/23 23:16 93 H 17 99 05/03/23 23:16 86/62 L 05/03/23 23:10 94 H 18 99 05/03/23 23:02 94 H 20 98 05/03/23 23:02 87/61 L 05/03/23 23:00 92 H 29 H 98 05/03/23 22:50 98 H 28 H 81 L 05/03/23 22:45 110 H 21 98 05/03/23 22:45 124/77 05/03/23 22:40 95 H 23 98 05/03/23 22:30 95 H 32 H 99 05/03/23 22:30 96/64 L 05/03/23 22:20 97 H 23 99 05/03/23 22:15 97/58 L 05/03/23 22:15 93 H 20 98 05/03/23 22:10 92 H 21 98 05/03/23 20:27 101 H 05/03/23 22:00 98 H 25 H 99 05/03/23 22:00 105/59 L 05/03/23 21:50 97 H 18 98 05/03/23 21:45 96/60 L 05/03/23 21:45 95 H 17 96 05/03/23 21:40 95 H 13 100 05/03/23 21:34 98 05/03/23 21:34 104/65 05/03/23 21:00 97 H 20 98 05/03/23 21:00 110/60 05/03/23 20:50 98 H 25 H 97 05/03/23 20:49 89/63 L 05/03/23 20:49 100 H 27 H 96 05/03/23 20:40 108 H 18 97 05/03/23 20:30 102 H 14 91 05/03/23 20:28 100 H 17 92 05/03/23 20:28 37.7 C H 96 H 20 107/65 96 05/03/23 20:00 96 H 20 96 05/03/23 20:00 89 L 05/03/23 19:52 37.2 C 98 H 20 100/63 90 O2 Del Method O2 Flow Rate 05/04/23 01:15 Nasal Cannula 3 05/04/23 01:00 Nasal Cannula 3 05/04/23 00:45 Nasal Cannula 3 05/04/23 00:30 Nasal Cannula 3 05/04/23 00:21 Nasal Cannula 3 05/04/23 00:15 05/04/23 00:00 Nasal Cannula 3 05/03/23 23:45 Nasal Cannula 3 05/03/23 23:43 Nasal Cannula 3 05/03/23 23:30 Nasal Cannula 3 05/04/23 00:32 05/03/23 23:20 05/03/23 23:16 05/03/23 23:16 05/03/23 23:10 05/03/23 23:02 05/03/23 23:02 05/03/23 23:00 05/03/23 22:50 05/03/23 22:45 05/03/23 22:45 05/03/23 22:40 05/03/23 22:30 05/03/23 22:30 05/03/23 22:20 05/03/23 22:15 05/03/23 22:15 05/03/23 22:10 05/03/23 20:27 05/03/23 22:00 05/03/23 22:00 05/03/23 21:50 05/03/23 21:45 05/03/23 21:45 05/03/23 21:40 05/03/23 21:34 05/03/23 21:34 05/03/23 21:00 05/03/23 21:00 05/03/23 20:50 05/03/23 20:49 05/03/23 20:49 05/03/23 20:40 05/03/23 20:30 05/03/23 20:28 05/03/23 20:28 Nasal Cannula 2 05/03/23 20:00 Nasal Cannula 2 05/03/23 20:00 Room Air 0 05/03/23 19:52 Room Air Laboratory Results Laboratory Results WBC 14.85 K/ul (4.8-10.8) H 05/03/23 20:10 RBC 4.69 M/uL (4.70-6.10) L 05/03/23 20:10 Hgb 15.3 g/dl (14.0-18.0) 05/03/23 20:10 Hct 41.8 % (42.0-52.0) L 05/03/23 20:10 MCV 89.1 fL (80.0-100.0) 05/03/23 20:10 MCH 32.6 pg (25.0-34.0) 05/03/23 20:10 MCHC 36.6 g/dL (32.0-36.0) H 05/03/23 20:10 RDW Std Deviation 39.7 fL (36.4-46.3) 05/03/23 20:10 RDW Coeff of Claudia 12.3 % (11.5-14.5) 05/03/23 20:10 Plt Count 168 K/uL (130-400) 05/03/23 20:10 MPV 10.6 fL (9.4-12.4) 05/03/23 20:10 Immature Gran % (Auto) 0.5 % 05/03/23 20:10 Neut % (Auto) 90.8 % 05/03/23 20:10 Lymph % (Auto) 2.9 % 05/03/23 20:10 Rice % (Auto) 5.4 % 05/03/23 20:10 Eos % (Auto) 0.2 % 05/03/23 20:10 Baso % (Auto) 0.2 % 05/03/23 20:10 Neut # (Auto) 13.48 K/uL (1.40-6.50) H 05/03/23 20:10 Lymph # (Auto) 0.43 K/uL (1.20-3.40) L 05/03/23 20:10 Rice # (Auto) 0.80 K/uL (0.11-0.59) H 05/03/23 20:10 Eos # (Auto) 0.03 K/uL (0.00-0.50) 05/03/23 20:10 Baso # (Auto) 0.03 K/uL (0.00-0.20) 05/03/23 20:10 Immature Gran # (Auto) 0.08 K/uL (0.01-0.20) 05/03/23 20:10 ESR 19 mm/hr (0-20) 05/03/23 20:10 PT 10.7 Seconds (9.0-12.0) 05/03/23 20:10 INR 1.0 (0.9-1.1) 05/03/23 20:10 APTT 23.0 Seconds (21.0-31.0) 05/03/23 20:10 PTT Ratio 0.8 05/03/23 20:10 VBG pH 7.41 (7.36-7.41) 05/03/23 20:46 VBG pCO2 37 mmHg (38-50) L 05/03/23 20:46 VBG pO2 64 mmHg 05/03/23 20:46 VBG HCO3 24 mmol/L 05/03/23 20:46 VBG O2 Saturation 92.4 % 05/03/23 20:46 VBG Base Excess -0.8 mEq/L 05/03/23 20:46 Sodium 138 mmol/L (136-145) 05/04/23 01:37 Potassium 3.6 mmol/L (3.5-5.1) 05/04/23 01:37 Chloride 108 mmol/L (98-107) H 05/04/23 01:37 Carbon Dioxide 25 mmol/L (21-32) 05/04/23 01:37 Anion Gap 5 (3-11) 05/04/23 01:37 BUN 14 mg/dl (6-23) 05/04/23 01:37 Creatinine 0.86 mg/dl (0.6-1.4) 05/04/23 01:37 Est Cr Clr Drug Dosing 89.0 ml/min 05/04/23 01:37 Est GFR ( Amer) 102.5 ml/min 05/04/23 01:37 Est GFR (Non-Af Amer) 88.5 ml/min 05/04/23 01:37 BUN/Creatinine Ratio 16.3 (10-20) 05/04/23 01:37 Glucose 113 mg/dl (70-99(Fasting)) H 05/04/23 01:37 POC Glucose 136 mg/dl (70-99) H 05/03/23 20:21 Lactate 1.5 mmol/L (0.4-2.0) 05/04/23 01:34 Calcium 8.1 mg/dl (8.6-10.3) L 05/04/23 01:37 Magnesium 1.5 mg/dl (1.7-2.4) L 05/03/23 20:10 Total Bilirubin 1.2 mg/dl (0.2-1.0) H 05/03/23 20:10 Direct Bilirubin 0.2 mg/dl (0-0.2) 05/03/23 20:10 AST 17 U/L (13-39) 05/03/23 20:10 ALT 20 U/L (7-52) 05/03/23 20:10 Alkaline Phosphatase 127 U/L (34-104) H 05/03/23 20:10 Troponin I High Sens 7.2 pg/ml (0-20) 05/03/23 20:10 C-Reactive Protein 1.16 mg/dl (0-0.5) H 05/03/23 20:10 Total Protein 7.0 gm/dl (6.0-8.3) 05/03/23 20:10 Albumin 3.9 gm/dl (3.4-5.0) 05/03/23 20:10 Procalcitonin 0.11 ng/ml (0-0.5) 05/03/23 20:10 Random Cortisol 9.58 mcg/dl 05/04/23 01:34 Urine Color Yellow 05/03/23 22:02 Urine Appearance Clear (Clear) 05/03/23 22:02 Urine pH 5.5 (4.5-7.5) 05/03/23 22:02 Ur Specific Norman > 1.045 (1.000-1.030) H 05/03/23 22:02 Urine Protein Negative (Negative) 05/03/23 22:02 Urine Glucose (UA) 3+ (Negative) H 05/03/23 22:02 Urine Ketones Trace (Negative) H 05/03/23 22:02 Urine Blood Negative (Negative) 05/03/23 22:02 Urine Nitrite Negative (Negative) 05/03/23 22:02 Urine Bilirubin Negative (Negative) 05/03/23 22:02 Urine Urobilinogen Negative (Negative) 05/03/23 22:02 Ur Leukocyte Esterase Negative (Negative) 05/03/23 22:02 Adenovirus (PCR) Not Detected (NotDetected) 05/03/23 21:02 Anaplasma Smear See Comment 05/03/23 20:10 Babesia Smear See Comment 05/03/23 20:10 B. pertussis DNA (PCR) Not Detected (NotDetected) 05/03/23 21:02 B.parapertussis DNA PCR Not Detected (NotDetected) 05/03/23 21:02 Lyme Disease IgG Ab Negative (Negative) 05/03/23 20:10 Lyme Disease IgM Ab Negative (Negative) 05/03/23 20:10 C. pneumoniae DNA (PCR) Not Detected (NotDetected) 05/03/23 21:02 Coronavirus OC43 (PCR) Not Detected (NotDetected) 05/03/23 21:02 Coronavirus HKU1 (PCR) Not Detected (NotDetected) 05/03/23 21:02 Coronavirus 229E (PCR) Not Detected (NotDetected) 05/03/23 21:02 SARS-CoV-2 (PCR) Not Detected (NotDetected) 05/03/23 21:02 Coronavirus NL63 (PCR) Not Detected (NotDetected) 05/03/23 21:02 Human Metapneumovir PCR Not Detected (NotDetected) 05/03/23 21:02 Influenza Type A (PCR) Not Detected (NotDetected) 05/03/23 21:02 Influenza Type B (PCR) Not Detected (NotDetected) 05/03/23 21:02 M. pneumoniae (PCR) Not Detected (NotDetected) 05/03/23 21:02 Parainfluenza 1 (PCR) Not Detected (NotDetected) 05/03/23 21:02 Parainfluenza 2 (PCR) Not Detected (NotDetected) 05/03/23 21:02 Parainfluenza 3 (PCR) Not Detected (NotDetected) 05/03/23 21:02 Parainfluenza 4 (PCR) Not Detected (NotDetected) 05/03/23 21:02 RSV (PCR) Not Detected (NotDetected) 05/03/23 21:02 Entero/Rhino (PCR) Not Detected (NotDetected) 05/03/23 21:02 Impressions Abdomen/Pelvis CT 05/03/23 20:52 Exam(s): CT ABDOMEN + PELVIS With Contrast IV Amt: 118ML OPTIRAY 350 EXAM: CT Abdomen and Pelvis With Intravenous Contrast CLINICAL HISTORY: Reason for exam: upper pain and fever. TECHNIQUE: Axial computed tomography images of the abdomen and pelvis with intravenous contrast. CTDI is 37.22 mGy and DLP is 2988.25 mGy-cm. Automated exposure control was utilized for the study. A dose lowering technique was utilized adhering to the principles of ALARA. CONTRAST: Patient received 118ML OPTIRAY 350 of IV contrast COMPARISON: No relevant prior studies available. FINDINGS: Lung bases: Unremarkable. No mass. No consolidation. ABDOMEN: Liver: Unremarkable. No focal hepatic lesion. Gallbladder and bile ducts: Cholecystectomy. No ductal dilation. Pancreas: Unremarkable. No mass. No ductal dilation. Spleen: Unremarkable. No splenomegaly. Adrenals: Unremarkable. No mass. Kidneys and ureters: Unremarkable. No hydronephrosis or delayed nephrogram. Stomach and bowel: Mild fecal retention, correlate for constipation. No small bowel obstruction. No mucosal thickening. PELVIS: Appendix: No findings to suggest acute appendicitis. Bladder: Unremarkable. No mass. Reproductive: Unremarkable as visualized. ABDOMEN and PELVIS: Intraperitoneal space: Unremarkable. No free air. No significant fluid collection. Bones/joints: Degenerative changes of the spine. No acute fracture. No dislocation. Soft tissues: Unremarkable. Vasculature: Atherosclerotic changes of the aorta. No abdominal aortic aneurysm. Lymph nodes: Unremarkable. No enlarged lymph nodes. IMPRESSION: 1. No hydronephrosis or delayed nephrogram. 2. Cholecystectomy. 3. Mild fecal retention, correlate for constipation. No small bowel obstruction. Electronically signed by: Jamie Gonzalez MD 05/03/23 23:12 PM Chest CTA 05/03/23 20:52 Exam(s): CTA CHEST EXAM: CT Angiography Chest With Intravenous Contrast CLINICAL HISTORY: Reason for exam: PE. TECHNIQUE: Axial computed tomographic angiography images of the chest with intravenous contrast. CTDI is 37.22 mGy and DLP is 2988.25 mGy-cm. Automated exposure control was utilized for the study. A dose lowering technique was utilized adhering to the principles of ALARA. MIP reconstructed images were created and reviewed. COMPARISON: No relevant prior studies available. FINDINGS: Pulmonary arteries: Unremarkable. No pulmonary embolism. Aorta: Atherosclerotic changes of the aorta. No thoracic aortic aneurysm. Lungs: Airspace consolidation versus mass in the RIGHT upper lobe measures 4.2 x 2.7 cm. Correlate for pneumonia. Follow-up chest CT recommended to document resolution following treatment. Pleural space: Unremarkable. No significant effusion. No pneumothorax. Heart: Unremarkable. No cardiomegaly. No significant pericardial effusion. No evidence of RV dysfunction. Bones/joints: Sternotomy wires. Degenerative changes of the spine. No acute fracture. No dislocation. Soft tissues: Unremarkable. Lymph nodes: Unremarkable. No enlarged lymph nodes. Gallbladder and bile ducts: Cholecystectomy. IMPRESSION: Airspace consolidation versus mass in the RIGHT upper lobe measures 4.2 x 2.7 cm. Correlate for pneumonia. Follow-up chest CT recommended to document resolution following treatment. Electronically signed by: Jamie Gonzalez MD 05/03/23 23:[address] 05/03/23 20:52 Exam(s): CT HEAD Without Contrast EXAM: CT Head Without Intravenous Contrast CLINICAL HISTORY: Reason for exam: AMS. TECHNIQUE: Axial computed tomography images of the head/brain without intravenous contrast. CTDI is 37.22 mGy and DLP is 2988.25 mGy-cm. Automated exposure control was utilized for the study. A dose lowering technique was utilized adhering to the principles of ALARA. COMPARISON: No relevant prior studies available. FINDINGS: No acute intracranial hemorrhage. No midline shift or mass effect. The territorial kenyon-white matter differentiation is maintained throughout. Age-related cerebral volume loss. Periventricular and subcortical white matter hypoattenuation, consistent with chronic microangiopathy. The visualized orbits appear grossly unremarkable. The calvarium is intact. The visualized paranasal sinuses and mastoid air cells are grossly clear. IMPRESSION: No acute intracranial hemorrhage, midline shift, or mass effect. Electronically signed by: Jamie Gonzalez MD 05/03/23 22:50 PM PG Care Time/CCT Total # of Minutes Spent Total Time Spent with Patient: Total time spent is greater than 50% in coordination of care (as documented) at patient's floor/unit and/or counseling patient: Coding Level of Care Code 31446 INT INP/OBS CARE 3/75MIN Diagnoses Sepsis A41.9 Coronary artery disease I25.10 Pneumonia J18.9 Laterality: right Lung location: upper lobe of lung Pneumonia type: due to unspecified organism Diabetes E11.9 (3) Pneumonia Laterality: right Lung location: upper lobe of lung Pneumonia type: due to unspecified organism Qualified Code(s): J18.9 - Pneumonia, unspecified organism
[2023-05-04] MEDS ORDERED: GLUCOSE 10 TAB/TUBE PO PRN (04:59)
[2023-05-04] MEDS ORDERED: GLUCAGON FOR INJ 1 MG VIAL SQ PRN (04:59)
[2023-05-04] MEDS ORDERED: CARBOHYDRATES FOR HYPOGLYCEMIA PO PRN (04:59)
[2023-05-04] MEDS ORDERED: DEXTROSE 50% 50 ML SYRINGE IV PRN (04:59)
[2023-05-04] MEDS ORDERED: GLUCOSE 40% GEL 15 GM TUBE PO PRN (04:59)
[2023-05-04] MEDS ORDERED: HYDROCORTISONE SOD SUCCINATE 100 MG/2 ML VIAL IV ONE (05:15)
[2023-05-04] MEDS ORDERED: PIPERACILLIN/TAZOBACTAM 4.5 GM in DEXTROSE 5% 100 ML IV SCH (06:00)
--- NOTE | 2023-05-04 07:54 | XRay Report ---
XR chest 1V portable HISTORY: Sepsis COMPARISON: None. FINDINGS: Focal right upper lobe airspace opacity is better appreciated on the same day chest CTA. Th e left lung is clear. The heart is top normal in size. There are poststernotomy changes. Metallic anc hors within the left humeral head. No pleural effusions. No pneumothorax. IMPRESSION: Focal right upper lobe airspace opacity is better appreciated on the same day chest CTA. Follow-up re commended to ensure resolution and exclude the possibility of a pulmonary lesion. ACT 112: Positive. There are findings on this exam that require communication between the performing entity and the patient following Patient Test Result Information Act ([place] Act 112) guidelines. Electronically signed by: Ritesh Kerr M.D. 05/04/2023 7:53 AM
[2023-05-04] MEDS: INSULIN ASPART PER UNIT CHARGE SC SCH ×4 (08:11→20:39)
[2023-05-04] MEDS: ATORVASTATIN 40 MG TAB PO SCH (08:13)
[2023-05-04] MEDS: METOPROLOL SUCC 25MG EXT REL TAB PO SCH (11:54)
[2023-05-04] MEDS ORDERED: HYDROCORTISONE SOD 50 MG in SYRINGE 0 ML IV SCH (12:00)
--- NOTE | 2023-05-04 12:35 | Hospitalist Progress Note ---
Date of Service May 04, 2023 Assessment & Plan (1) Acute prostatitis: Plan: Now on intravenous Cipro. Eaton catheter was placed in the ED due to urinary retention. Will attempt trial of voiding tomorrow, May 05. He eventually will go home on oral Cipro therapy. Await final blood culture results (2) Sepsis: Plan: Present on admission accompanied by mild hypotension. Low blood pressure re solved with IV fluids. Await final blood culture results. We will continue to treat suspected acute prostatitis. (3) Coronary artery disease: Plan: Patient denies chest pain. Troponin is WNL. No acute ischemic changes present on EKG. metoprolol has been restarted (4) Diabetes: Plan: ADA diet. Oral medications are currently on hold. Sliding scale coverage for now Plan Eventual discharge to home on oral Cipro therapy. Possibly tomorrow, May 05. Hopefully can remove Eaton catheter tomorrow and attempt trial of voiding before discharge Admission and Anticipated Discharge Date Admission Date: May 04, 2023 Subjective Alert and oriented. is at the bedside. Mental status has improved considerably. I do not believe this is pneumonia. His infection is probably from acute prostatitis which is responding to intravenous antibiotics. He is now on Cipro. Doxycycline and Zosyn have been discontinued. Hydrocortisone has been discontinued. IV fluids taper down. He had difficulty with urinary retention in the ED and Eaton catheter was placed and remains in place for now. Magnesium level will be rechecked. Potassium is now 3.6. Blood pressure is stabilized. His low-dose metoprolol XL has been restarted. Trial of voiding tomorrowMay 05. If blood cultures are negative, he should be able to go home soon on p.o. Cipro Review of Systems Review of Systems: Constitutional-no fever or chills ENT-no blurred vision, no double vision, no epistaxis, no sore throat Respiratory-no cough, no wheezing, no shortness of breath Cardiac-no palpitations, no chest pain, no syncope GI-no nausea, vomiting, diarrhea, melena, hematochezia -Eaton catheter in place. Clear urine. No hematuria. He had urinary retention in the ED Musculoskeletal-no joint pain, no muscle tenderness Skin-no bruising, no rashes, no pruritus Neuro-no isolated weakness, no paresthesia, no weakness Psych-no depression, no anxiety Physical Exam Physical Exam: General-alert and oriented x3, no fevers, no chills HEENT-head atraumatic and normocephalic, pupils equal and reactive to light, extraocular muscles intact Neck-no lymphadenopathy or thyromegaly, trachea midline Chest-clear to auscultation percussion. No rales wheezing or rhonchi Cardiac-regular rate and rhythm, normal S1 and S2 Abdomen-normal bowel sounds, nontender, no hepatosplenomegaly Extremities-no cyanosis, clubbing, or edema GUFoley catheter in place draining clear urine Neuro-cranial nerves II through XII intact, motor and sensory function within normal limits, strength symmetrical , no focal deficits Psych-normal affect, normal mood Results & Data Results & Data Vital Signs (Past 12 Hours) Vital Signs Temp Pulse Pulse Resp BP BP Pulse Ox 05/04/23 12:03 36.5 C 78 19 96 05/04/23 11:53 84 112/69 05/04/23 08:04 37.3 C 84 21 102/63 95 05/04/23 05:47 85 05/04/23 05:14 36.7 C 85 18 107/66 96 05/04/23 04:45 85 18 103/70 98 05/04/23 04:30 83 16 104/65 97 05/04/23 04:15 81 13 99/67 L 98 05/04/23 04:00 84 12 106/64 97 05/04/23 03:45 79 22 100 05/04/23 03:30 83 13 97/60 L 97 05/04/23 03:17 82 21 95/62 L 100 05/04/23 03:00 81 18 94/60 L 98 05/04/23 02:46 92 H 20 91/62 L 99 05/04/23 02:45 81 17 98 05/04/23 02:32 84 19 92/56 L 100 05/04/23 02:31 86 19 102/58 L 100 05/04/23 02:30 83 15 99 05/04/23 02:30 98 05/04/23 02:15 79 17 98 05/04/23 02:00 95 H 20 110/90 99 05/04/23 01:45 82 18 96/54 L 99 05/04/23 01:30 83 16 86/56 L 99 05/04/23 01:15 87 21 89/65 L 98 05/04/23 01:00 85 15 97/68 L 97 05/04/23 00:45 93 H 21 106/63 96 05/04/23 00:30 89 19 96/58 L 95 05/04/23 00:32 87 O2 Del Method O2 Flow Rate 05/04/23 12:03 Room Air 05/04/23 11:53 05/04/23 08:04 Room Air 05/04/23 05:47 05/04/23 05:14 Room Air 05/04/23 04:45 Nasal Cannula 3 05/04/23 04:30 Nasal Cannula 3 05/04/23 04:15 Nasal Cannula 3 05/04/23 04:00 Nasal Cannula 3 05/04/23 03:45 Nasal Cannula 3 05/04/23 03:30 Nasal Cannula 3 05/04/23 03:17 Nasal Cannula 3 05/04/23 03:00 Nasal Cannula 3 05/04/23 02:46 Nasal Cannula 3 05/04/23 02:45 Nasal Cannula 3 05/04/23 02:32 Nasal Cannula 3 05/04/23 02:31 Nasal Cannula 3 05/04/23 02:30 Nasal Cannula 3 05/04/23 02:30 Nasal Cannula 3 05/04/23 02:15 Nasal Cannula 3 05/04/23 02:00 Nasal Cannula 3 05/04/23 01:45 Nasal Cannula 3 05/04/23 01:30 Nasal Cannula 3 05/04/23 01:15 Nasal Cannula 3 05/04/23 01:00 Nasal Cannula 3 05/04/23 00:45 Nasal Cannula 3 05/04/23 00:30 Nasal Cannula 3 05/04/23 00:32 Laboratory Results 05/03/23 20:10 05/04/23 01:37 PG Care Time/CCT Total # of Minutes Spent Total Time Spent with Patient: Total time spent is greater than 50% in coordination of care (as documented) at patient's floor/unit and/or counseling patient: Coding Level of Care Code 67235 SUB INP/OBS CARE 3/50MIN Diagnoses Acute prostatitis N41.0 Sepsis A41.9 Coronary artery disease I25.10 Diabetes E11.9
[2023-05-04] MEDS: CIPROFLOXACIN / D5W 400 MG/200 ML BAG IV SCH (13:18)
[2023-05-04] MEDS ORDERED: DOXYCYCLINE HYCLATE 100 MG in DEXTROSE 5% 100 ML IV SCH (14:00)
--- NOTE | 2023-05-04 20:53 | Electrocardiogram Report ---
Test Reason : Blood Pressure : / mmHG Vent. Rate : 096 BPM Atrial Rate : 096 BPM P-R Int : 158 ms QRS Dur : 096 ms QT Int : 368 ms P-R-T Axes : 077 073 057 degrees QTc Int : 464 ms Normal sinus rhythm Incomplete right bundle branch block Borderline ECG No previous ECGs available Confirmed by Jace Ramsey ([id number]) on 05/04/2023 8:53:17 PM Referred By: REFERRED SELF Confirmed By:Jace Ramsey
[2023-05-05] MEDS: CIPROFLOXACIN / D5W 400 MG/200 ML BAG IV SCH ×2 (00:59→12:43)
[2023-05-05 07:56] LABS: Hematocrit (blood only) 37.4 % (42.0-52.0); Hemoglobin 13.5 g/dl (14.0-18.0); Mean Corpuscular Hemoglobin 32.7 pg (25.0-34.0); Mean Corpuscular Hgb Conc 36.1 g/dL (32.0-36.0); Mean Corpuscular Volume 90.6 fL (80.0-100.0); Mean Platelet Volume 10.5 fL (9.4-12.4); Platelet Count 162 K/uL (130-400); RDW Coefficient of Variation 12.7 % (11.5-14.5); RDW Standard Deviation 41.9 fL (36.4-46.3); Red Blood Count 4.13 M/uL (4.70-6.10); White Blood Count 15.35 K/ul (4.8-10.8)
[2023-05-05 08:14] LABS: Albumin Level 3.3 gm/dl (3.4-5.0); BUN Creatinine Ratio 14.1 (10-20); Bilirubin Direct 0.2 mg/dl (0-0.2); Bilirubin,Total 1.3 mg/dl (0.2-1.0); Calcium 8.5 mg/dl (8.6-10.3); Creatinine Clr Calc Pharmacy 106.1 ml/min; Est GFR (African American) 106.7 ml/min; Est GFR (Non-African American) 92.1 ml/min; Magnesium 1.7 mg/dl (1.7-2.4); Potassium 3.5 mmol/L (3.5-5.1); Total Protein 6.2 gm/dl (6.0-8.3)
[2023-05-05] MEDS: INSULIN ASPART PER UNIT CHARGE SC SCH ×3 (08:37→18:32)
[2023-05-05] MEDS: METOPROLOL SUCC 25MG EXT REL TAB PO SCH (08:38)
[2023-05-05] MEDS: ATORVASTATIN 40 MG TAB PO SCH (08:38)
--- NOTE | 2023-05-05 14:05 | Communication Note ---
Metabolic encephalopathy, POA, resolved AMS, lethargy in the setting of sepsis due to acute prostatitis Risk Factor(s): Acute prostatitis, sepsis Treatment: CT head, IVF, antibiotics, cultures
--- NOTE | 2023-05-05 14:06 | Discharge Summary ---
Date of Service May 05, 2023 Admission HPI Per Admitting Provider Santo Orr is a 67yo male with history of CAD s/p CABG and diabetes presenting with sepsis - fever/leukocytosis and hypotension. Patient has been in his usual state of health of late - was busy yesterday driving his daughter to [facility], did some yard work and made some hay today in their field. Around 18:30 this evening he was with his granddaughter when he became febrile to 102.5 and confused. She reports that he was "talking crazy". Granddaughter gave him some Ibuprofen. He became quite weak and was unable to walk to the car. He crawled to the vehicle and came to the ER. In the ER patient with elevated HR >90, low blood pressure 80's/60's. He was hypoxic at 89% on room air and was placed on supplemental oxygen with improvement. endorses some vomiting prior to arrival - non-bloody/non-bilious Also with some shortness of breath Otherwise no report of headache, visual changes, chest pain, cough, abdominal pain, diarrhea or urinary complaints. Patient is eating and drinking well without difficulty. ER Course: NSS x 2.5L LR x 1L LR at 125mL/hr now started Zosyn 4.5gm IV Doxycycline 100mg IV Mg 1gm KCl 40mEq PO Tylenol 1gm Principal Diagnosis UTI Discharge Exam General-alert and oriented x3, no fevers, no chills HEENT-head atraumatic and normocephalic, pupils equal and reactive to light, extraocular muscles intact Neck-no lymphadenopathy or thyromegaly, trachea midline Chest-clear to auscultation percussion. No rales wheezing or rhonchi Cardiac-regular rate and rhythm, normal S1 and S2 Abdomen-normal bowel sounds, nontender, no hepatosplenomegaly Extremities-no cyanosis, clubbing, or edema GUFoley catheter in place draining clear urine Neuro-cranial nerves II through XII intact, motor and sensory function within normal limits, strength symmetrical , no focal deficits Psych-normal affect, normal mood Discharge Data Allergies Allergy/AdvReac Type Severity Reaction Status Date / Time No Known Allergies Allergy Verified 05/08/23 01:12 Consultations 05/03/23 23:32 ED Decision to Admit Stat Ordered Studies 05/03/23 20:52 CT abd pelvis IV con only Stat CT angio chest PE protocol Stat CT head/brain wo con Stat Hospital Course (1) Acute prostatitis: Now on intravenous Cipro. Aguilar catheter was placed in the ED due to urinary retention. Patient had a significant urinary residual volume post void on day of discharge. Recommended to continue with aguilar catheter and have patient followup with Uroogy. Antibiotics for 2 weeks; if UIrology or PCP strongly suggests Prostatitis, then will need to extend antibiotics (2) Sepsis: Metabolic encephalopathy, POA, resolved : AMS, lethargy in the setting of sepsis due to acute prostatitis Present on admission accompanied by mild hypotension. Low blood pressure resolved with IV fluids. Await final blood culture results. We will continue to treat suspected acute prostatitis. (3) Coronary artery disease: Patient denies chest pain. Troponin is WNL. No acute ischemic changes present on EKG. metoprolol has been restarted (4) Diabetes: ADA diet. Oral medications are currently on hold. Sliding scale coverage for now Plan Eventual discharge to home on oral Cipro therapy. Possibly tomorrow, May 05. Hopefully can remove Aguilar catheter tomorrow and attempt trial of voiding before discharge Total Time Total Time Spent Total Time Spent (In Minutes): 32 Discharge Plan Discharge Items Patient Disposition: Home - Self-Care Reason For Visit: SEPSIS Discharge Diagnosis: sepsis Activity: Resume your previous activity Non-emergency contact: Primary Care Provider Call non-emergency contact if: you have any medication questions Follow-up/Referrals: Juan Pablo Bragg PA-C [Primary Care Provider] - (Please call your PCP to make follow up appointment with in 5 to 7 days. ) Diet: Carb Consistent or DM2 and Heart Healthy Addtl Attending Provider Instructions: You were treated for a UTI Will recommend holding atorvastatin and recommend close folllow-up with your PCP in 1-2 weeks. Will depend on that appointment to see if antibiotics need to be extended. Recommend checking CRP and esr in 2 weeks. Will also recommend close followup with Urology for a voiding trial. Pending Studies at Discharge: No Stand-Alone Forms: My [employer], Smoking Cessation Medications and DC Order Prescriptions: New ciprofloxacin HCl 500 mg tablet 500 mg PO BID Qty: 28 0RF Rx Instructions: STARTED 05/05/23 FOR 14 DAYS tamsulosin [Flomax] 0.4 mg capsule 0.4 mg PO HS Qty: 30 0RF Continued Jardiance 25 mg tablet 25 mg PO DAILY glipizide 10 mg tablet extended release 24hr 10 mg PO BID metformin 1,000 mg tablet 1,000 mg PO BIDM metoprolol succinate 25 mg tablet extended release 24 hr 12.5 mg PO DAILY Trulicity 0.75 mg/0.5 mL pen injector 0.75 mg SUBCUT WK Rx Instructions: PER PT "DID NOT GET FOR THIS MONTH (APRIL) YET". furosemide 20 mg tablet 20 mg PO DAILY PRN (Reason: leg swelling) nitroglycerin 0.4 mg tablet, sublingual 0.4 mg sublingual UD PRN (Reason: Chest Pain) Rx Instructions: place 1 tablet under tongue every 5 minutes as needed for chest pain. may repeat every 5 minutes for 3 times Discontinued atorvastatin 80 mg tablet 80 mg PO DAILY No Action atorvastatin 80 mg tablet 80 mg PO DAILY Rx Instructions: PER PT "ON HOLD WHILE ON CIPRO, CONTRAINDICATED". Discharge Orders: Discharge Order (Routine); Ordered 05/05/23 Ordered By: Elijah Alcocer/Other Patient Handouts: Managing Type 2 Diabetes, How to Check Your Blood Sugar, Leg Bag Care Dc Admission Data Admit Date/Time: 05/04/23 02:40 Attending Provider: Elijah Snell Admit Provider: Agnieszka Simon Primary Care Provider: Juan Pablo Bragg Other Interventions: Discharge Summary Assessment (RN) Last Done: 05/05/23 15:53 Coding Level of Care Code 31938 INP/OBS DISCH >30 MIN Diagnoses Acute prostatitis N41.0 Sepsis A41.9 Coronary artery disease I25.10 Diabetes E11.9
--- NOTE | 2023-05-05 14:46 | Communication Note ---
Date of Service: May 05, 2023 By CMS guidelines, a determination that the admission or continued stay is not medically necessary has been made by a member of the UR committee and a ph ysician for this hospital stay, therefore a Code 44 will be completed and the Inpatient admission will be changed to outpatient.
[2023-05-07 23:42] LABS: Babesia microti DNA Not Detected (Not Detected)
== END 2023-05-05 18:34 | disposition home or self-care (01) | DRG 871 ==
LOC: ED 19:49 → 2E 05-04 02:40 → INTOOBSV 05-04 02:40 → SUATTDRO 05-04 02:40 → 2E 05-04 04:25